=== PATIENT | female | born 1990 | race Two or more races ===

== ENCOUNTER 2024-05-06 16:21 | Emergency (ER) | payer OTHER ==
[~2024-05-06] VITALS: Ht 172.7 cm; Wt 90.7 kg
[2024-05-06 16:28] VITALS: BP 135/76; O2SAT 98
[2024-05-06] MEDS ORDERED: ORPHENADRINE CITRATE 100 MG TABLET PO ONE (20:45)
[2024-05-06] MEDS ORDERED: KETOROLAC TROMETHAMINE 60 MG VIAL IM ONE ×2 (20:45→20:51)
[2024-05-06] MEDS ORDERED: DEXAMETHASONE SODIUM PHOSPHATE 4 MG/ML VIAL IM ONE (20:45)
[2024-05-06] MEDS ORDERED: NORFLEX100MG PO (20:48)
[2024-05-06] MEDS ORDERED: DEXAMETHASONE SODIUM PHOSPHATE 4 MG/ML VIAL ONE (20:51)
== END 2024-05-06 21:02 | disposition home or self-care (01) ==
LOC: ER 16:23
DX: G44.209 Tension-type headache, unspecified, not intractable (principal); Z87.09 Personal history of other diseases of the respiratory system